=== PATIENT | female | born 1960 | race Hispanic/Latino ===

== ENCOUNTER 2016-05-08 22:34 | Emergency (ER) | payer MEDICARE ==
[2016-05-08 23:58] LABS: Alanine Aminotransferase 44 units/L (7-56); Albumin 3.1 g/dL (3.9-5); Albumin/Globulin Ratio 0.6 %; Alkaline Phosphatase 223 units/L (35-129); Anion Gap 18 mmol/L; BUN/Creatinine Ratio 11.42; Basophils % (Auto) 0.8 % (0.0-1.8); Bilirubin,Total 0.6 mg/dL (0.1-1.2); Blood Urea Nitrogen 8 mg/dL (7-17); Calcium 8.4 mg/dL (8.4-10.2); Carbon Dioxide 23 mmol/L (22-30); Chloride 97.1 mmol/L (98-107); Eosinophils % (Auto) 10.8 % (0.0-4.3); Glucose 131 mg/dL (65-100); Hematocrit 29.8 % (30.3-42.9); Hemoglobin 9.2 gm/dl (10.1-14.3); Lipase 67 units/L (13-60); Mean Corpuscular HGB Conc 31 % (30-34); Mean Corpuscular Hemoglobin 21 pg (28-32); Mean Corpuscular Volume 67 fl (79-97); Platelet Count 200 K/mm3 (140-440); Potassium 4.2 mmol/L (3.6-5.0); Red Blood Count 4.44 M/mm3 (3.65-5.03); Red Cell Distribution Width 21.1 % (13.2-15.2); Sodium 134 mmol/L (137-145); Total Protein 7.9 g/dL (6.3-8.2); White Blood Count 7.9 K/mm3 (4.5-11.0)
--- NOTE | 2016-05-09 09:46 | Emergency Department Report ---
Chief Complaint: Abdominal Pain Stated Complaint: ABD PAIN Time Seen by Provider: 05/09/16 09:32 - Exam Vital Signs: Vital Signs 05/08/16 23:11 Temperature 99 F Pulse Rate 110 H Respiratory 26 H Rate Blood Pressure 142/73 O2 Sat by Pulse 100 Oximetry MSE screening note: Focused history and physical exam performed. Due to findings the following was ordered: ED Medical Decision Making - Lab Data Result diagrams: 05/08/16 23:26 05/08/16 23:26 ED Disposition for MSE Condition: Stable Instructions: Abdominal Pain (ED) Referrals: DHIRAJ HUMPHREY MD [Primary Care Provider] - 3-5 Days
[2016-05-09] MEDS ORDERED: NACL 0.9% 1000 ML IV ONE (10:39)
--- NOTE | 2016-05-09 10:44 | Emergency Department Report ---
HPI - General Chief Complaint: Abdominal Pain Time Seen by Provider: 05/09/16 10:21 - HPI HPI: Chief complaint: Nausea vomiting diarrhea and generalized weakness HPI: Patient is 56-year-old female who states for the last month and half she's been having nausea vomiting and diarrhea intermittently. Patient had diarrhea yesterday but is small normal formed stool today. Patient is complaining of diffuse abdominal cramping intermittently. Patient saw her primary care 3 weeks ago and has an appointment with a GI specialist on May 22. Patient also had foot surgery 7 weeks ago. Patient denies being on antibiotics for any reason. Patient has history of hep C and she found out about 7 or 8 months ago and stopped drinking alcohol at that time. Patient has a chronic smoker's cough. Patient states she just feels bad and weak. No syncope Mode of arrival: private car Source: Patient and Began: Month and a half ago Duration: Intermittent Context: See above Quality: see above Severity: 8 out of 10 Improved with: Nothing Worsened with: Nothing Associated signs and symptoms: See above ED Past Medical Hx - Past Medical History Hx Liver Disease: Yes (Hep C) Hx Psychiatric Treatment: Yes - Surgical History Additional Surgical History: BL foot. ectopic - Social History Smoking Status: Current Every Day Smoker Substance Use Type: Alcohol - Medications Home Medications: Home Medications Medication Instructions Recorded Confirmed Last Taken Type Ondansetron [Zofran Odt] 4 mg PO Q4H PRN #10 tab.rapdis 05/09/16 Unknown Rx traMADol [Ultram 50 MG tab] 50 mg PO Q6HR PRN #14 tablet 05/09/16 Unknown Rx ED Review of Systems ROS: Stated complaint: ABD PAIN Other details as noted in HPI ROS Constitutional: fever ENT: No uri symptoms Cardiovascular: No chest pain Respiratory: No sob GI: See HPI : No dysuria frequency or urgency, Skin: No rash Neuro: No focal weakness or numbness Psych: No depression Humberto/lymph: No edema Physical Exam - Physical Exam Vital Signs: Vital Signs 05/08/16 05/09/16 05/09/16 23:11 10:12 10:13 Temperature 99 F Pulse Rate 110 H 107 H Respiratory 26 H 26 H Rate Blood Pressure 142/73 O2 Sat by Pulse 100 99 100 Oximetry 05/09/16 10:20 Temperature Pulse Rate Respiratory 18 Rate Blood Pressure O2 Sat by Pulse 100 Oximetry Physical Exam: GENERAL: The patient is well-developed well-nourished. HEENT: Normocephalic. Atraumatic. Extraocular motions are intact. Patient has moist mucous membranes. Extremely poor dental hygiene with missing teeth. NECK: Supple. No meningitic signs are noted. There is no adenopathy noted. CHEST/LUNGS: Clear to auscultation. There is no respiratory distress noted. Frequent dry smoker's cough. HEART/CARDIOVASCULAR: Regular. There is no tachycardia. There is no gallop rub or murmur. ABDOMEN: Abdomen is soft, nontender. Patient has normal bowel sounds. There is no abdominal distention. SKIN: There is no rash. There is no edema. There is no diaphoresis. NEURO: The patient is awake, alert, and oriented. The patient is cooperative. The patient has no focal neurologic deficits. The patient has normal speech. MUSCULOSKELETAL: There is no tenderness or deformity. There is no limitation range of motion. There is no evidence of acute injury. ED Course Vital Signs 05/08/16 05/09/16 05/09/16 23:11 10:12 10:13 Temperature 99 F Pulse Rate 110 H 107 H Respiratory 26 H 26 H Rate Blood Pressure 142/73 O2 Sat by Pulse 100 99 100 Oximetry 05/09/16 10:20 Temperature Pulse Rate Respiratory 18 Rate Blood Pressure O2 Sat by Pulse 100 Oximetry - Reevaluation(s) Reevaluation #1: 05/09/16 11:43 Patient given a liter normal saline, morphine, Zofran with improvement. 05/09/16 11:[address] Cantu who recommends referring the patient back to Dr. Dunaway who she has an appointment with. ED Medical Decision Making - Lab Data Result diagrams: 05/08/16 23:26 05/08/16 23:26 - Radiology Data Radiology results: report reviewed (CT scan shows cirrhosis and splenomegaly along with splenic vein and esophageal varices) Critical care attestation.: If time is entered above; I have spent that time in minutes in the direct care of this critically ill patient, excluding procedure time. ED Disposition Clinical Impression: Liver cirrhosis Qualifiers: Hepatic cirrhosis type: unspecified hepatic cirrhosis Disposition: DISCHARGED TO HOME OR SELFCARE Is pt being admited?: No Does the pt Need Aspirin: No Condition: Stable Instructions: Cirrhosis (ED), Acute Nausea and Vomiting (ED) Prescriptions: Ondansetron [Zofran Odt] 4 mg PO Q4H PRN #10 tab.rapdis PRN Reason: Nausea And Vomiting traMADol [Ultram 50 MG tab] 50 mg PO Q6HR PRN #14 tablet PRN Reason: Pain Referrals: DHIRAJ HUMPHREY MD [Primary Care Provider] - 3-5 Days TULIO DUNAWAY MD [Staff Physician] - 3-5 Days (Follow-up as planned) Time of Disposition: 12:04
[2016-05-09] MEDS ORDERED: NACL ONE (10:57)
[2016-05-09] MEDS ORDERED: ZOFRAN IV ONE (11:18)
[2016-05-09] MEDS ORDERED: MORPHINE IV ONE (11:18)
[2016-05-09 11:26] LABS: Bacteria,Urine 1+ /HPF (Negative); Bilirubin,Urine NEG (Negative); Blood,Urine SM (Negative); Ketones,Urine NEG (Negative); Leukocyte Esterase,Urine SM (Negative); Nitrite,Urine NEG (Negative); Protein,Urine <15 mg/dL mg/dL (Negative); Urobilinogen,Urine < 2.0 mg/dL (<2.0)
--- NOTE | 2016-05-09 11:36 | Cat Scan Report ---
CT ABDOMEN AND PELVIS WITH CONTRAST History: Abdominal pain, chronic nausea and vomiting. Technique: Helical CT following IV contrast. Sagittal and coronal reformatted images. Comparison: None at this facility. Findings: There is mild to moderate surface nodularity throughout the liver consistent with mild cirrhotic changes. No focal liver mass is appreciated. Splenomegaly measures 14.7 cm. There are mild splenic vein varicosities, gastrohepatic ligament varicosities and distal esophageal varicosities. No ascites is appreciated. 1 or 2 tiny calcified gallstones are identified within the gallbladder. No biliary dilatation is normal pancreas, kidneys, renal collecting systems, bladder and adrenal glands. The aorta is normal caliber. The bowel loops are within normal limits given no oral contrast was administered. Normal appendix. The uterus and adnexa are unremarkable. No evidence for acute inflammation or adenopathy. Heart size is normal. The visualized lung bases are clear. No suspicious bony lesion. Impression: Mild cirrhosis and splenomegaly. Varicosities as outlined above. No ascites. Tiny gallstones. No acute inflammatory process is appreciated.
[2016-05-09 13:20] VITALS: BP 97/42
== END 2016-05-09 13:31 | disposition home or self-care (01) ==
LOC: ED 22:34
DX: K74.60 Unspecified cirrhosis of liver (principal); F17.200 Nicotine dependence, unspecified, uncomplicated; Z98.890 Other specified postprocedural states
CPT/HCPCS: 36415; 74177; 80053; 81001; 81025; 83690; 85025; 96361; 96374; 96375; 99284; J2270; J2405; J7030; Q9967

== ENCOUNTER 2018-10-30 02:51 | Emergency (ER) | payer MEDICARE ==
[2018-10-30 03:50] LABS: Basophils % (Auto) 0.4 % (0.0-1.8); Eosinophils # (Auto) 0.3 K/mm3 (0.0-0.4); Hematocrit 27.1 % (30.3-42.9); Lymphocytes # (Auto) 1.5 K/mm3 (1.2-5.4); Lymphocytes % (Auto) 24.9 % (13.4-35.0); Mean Corpuscular HGB Conc 33 % (30-34); Mean Corpuscular Volume 89 fl (79-97); Monocytes # (Auto) 0.8 K/mm3 (0.0-0.8); Monocytes % (Auto) 14.3 % (0.0-7.3); Platelet Count 179 K/mm3 (140-440); Red Blood Count 3.06 M/mm3 (3.65-5.03); Red Cell Distribution Width 16.7 % (13.2-15.2)
[2018-10-30 04:19] LABS: Alanine Aminotransferase 29 units/L (7-56); Albumin 3.2 g/dL (3.9-5); BUN/Creatinine Ratio 13; Blood Urea Nitrogen 12 mg/dL (7-17); Calcium 8.2 mg/dL (8.4-10.2); Hemolysis Index 0
--- NOTE | 2018-10-30 07:06 | Emergency Department Report ---
HPI - General Chief Complaint: Abdominal Pain Time Seen by Provider: 10/30/18 06:51 - HPI HPI: Room 8 The patient is a 58-year-old female presenting with a chief complaint of abdominal pain. The patient states she has had constipation for the past 4 da ys. The patient states she developed diffuse abdominal pain 3 days ago. Patient states her abdomen feels full because she has not passed stool. Patient was to nausea but denies vomiting. Patient denies history of fever. Patient denies dysuria. Patient states she is taking Fleet enemas, milk of magnesia and MiraLAX without help Location: [See above] Duration: [See above] Quality: [See above] Severity: [See above] Modifying factors: [see above] Context: [see above] Mode of transportation: [not driving] ED Past Medical Hx - Past Medical History Previous Medical History?: Yes Hx Hypertension: (Stated High BP due to anxiety) Hx Liver Disease: Yes (Hep C) Hx Psychiatric Treatment: Yes Hx COPD: Yes Additional medical history: Peptic Ulcer Disease. - Surgical History Past Surgical History?: Yes Additional Surgical History: BL foot. ectopic - Family History Family history: no significant - Social History Smoking Status: Current Every Day Smoker (1/4 pack per day) Substance Use Type: None (denies illicit drug use) - Medications Home Medications: Home Medications Medication Instructions Recorded Confirmed Last Taken Type Ondansetron [Zofran Odt] 4 mg PO Q4H PRN #10 tab.rapdis 05/09/16 06/20/16 Unknown Rx traMADol [Ultram 50 MG tab] 50 mg PO Q6HR PRN #14 tablet 05/09/16 06/20/16 Unknown Rx ALPRAZolam [Alprazolam] 1 mg PO PRN 06/20/16 06/20/16 06/20/16 History 0815 Ondansetron [Zofran ODT TAB] 8 mg PO Q8HR #20 tab.rapdis 10/30/18 Unknown Rx Polyethylene Glycol/Elect 4,000 ml PO QDAY PRN #1 bottle 10/30/18 Unknown Rx [Golytely] ED Review of Systems ROS: Stated complaint: ABD/RIB PAIN Other details as noted in HPI Constitutional: no symptoms reported Eyes: denies: eye pain ENT: denies: throat pain Respiratory: no symptoms reported Cardiovascular: denies: chest pain Endocrine: no symptoms reported Gastrointestinal: abdominal pain, nausea, constipation. denies: vomiting Genitourinary: denies: dysuria Musculoskeletal: denies: back pain Neurological: denies: headache Physical Exam - Physical Exam Vital Signs: Vital Signs 10/30/18 10/30/18 10/30/18 03:10 05:06 05:50 Temperature 98.7 F 98.1 F Pulse Rate 95 H 86 Respiratory 18 17 16 Rate Blood Pressure 177/55 Blood Pressure 152/65 [Left] O2 Sat by Pulse 100 98 97 Oximetry Physical Exam: GENERAL: The patient is well-developed well-nourished female lying on stretcher not appearing to be in acute distress. [] HEENT: Normocephalic. Atraumatic. Extraocular motions are intact. Patient has moist mucous membranes. NECK: Supple. Trachea midline CHEST/LUNGS: Clear to auscultation. There is no respiratory distress noted. HEART/CARDIOVASCULAR: Regular. There is no tachycardia. There is no gallop rub or murmur. ABDOMEN: Abdomen is soft, with diffuse discomfort to palpation. There is no rebound or guarding. Patient has normal bowel sounds. There is no abdominal distention. SKIN: There is no rash. There is no edema. There is no diaphoresis. NEURO: The patient is awake, alert, and oriented. The patient is cooperative. The patient has normal speech MUSCULOSKELETAL: There is no evidence of acute injury. ED Course Vital Signs 10/30/18 10/30/18 10/30/18 03:10 05:06 05:50 Temperature 98.7 F 98.1 F Pulse Rate 95 H 86 Respiratory 18 17 16 Rate Blood Pressure 177/55 Blood Pressure 152/65 [Left] O2 Sat by Pulse 100 98 97 Oximetry ED Medical Decision Making - Lab Data Result diagrams: 10/30/18 03:35 10/30/18 03:35 Laboratory Tests 10/30/18 10/30/18 03:35 03:35 WBC 5.9 RBC 3.06 L Hgb 9.0 L Hct 27.1 L MCV 89 MCH 29 MCHC 33 RDW 16.7 H Plt Count 179 Lymph % (Auto) 24.9 [place] % (Auto) 14.3 H Eos % (Auto) 5.0 H Baso % (Auto) 0.4 Lymph # 1.5 [place] # 0.8 Eos # 0.3 Baso # 0.0 Seg Neutrophils % 55.4 Seg Neutrophils # 3.3 Sodium 135 L Potassium 4.0 Chloride 99.6 Carbon Dioxide 25 Anion Gap 14 BUN 12 Creatinine 0.9 Estimated GFR > 60 BUN/Creatinine Ratio 13 Glucose 96 Calcium 8.2 L Total Bilirubin 0.90 AST 35 ALT 29 Alkaline Phosphatase 119 Total Protein 6.8 Albumin 3.2 L Albumin/Globulin Ratio 0.9 - Radiology Data Radiology results: report reviewed (CT abdomen and pelvis), image reviewed (CT abdomen and pelvis) [facility] [address] [place] [address] Cat Scan Report Signed Patient: ALEXIS GENTILE MR#: [id number] : 1960 Acct:[id number] Age/Sex: 58 / F ADM Date: 10/30/18 Loc: ED Attending Dr: Ordering Physician: GIOVANNA CHAVEZ MD Date of Service: 10/30/18 Procedure(s): CT abdomen pelvis w con Accession Number(s): [id number] cc: GIOVANNA CHAVEZ MD CT ABDOMEN AND PELVIS WITH CONTRAST HISTORY: diffuse abdominal pain, constipation COMPARISON: 05/09/2016 TECHNIQUE: Axial CT images were obtained through the abdomen and pelvis after 100 cc of Omnipaque 300 intravenously. Sagittal and coronal reformatted images. All CT scans at this location are performed using CT dose reduction for ALARA by means of automated exposure control. FINDINGS: CT ABDOMEN: Lung Bases: Trace right pleural effusion is identified. The visualized lung bases are adequately aerated. Normal heart size. Small distal esophageal varices are identified. Liver: The liver is shrunken and cirrhotic. No obvious liver mass. The portal venous system is patent. Biliary: No significant abnormality. Spleen: Moderate splenomegaly measures 14.8 x 6.6 cm. Splenic vein varicosities and splenorenal renal shunt are noted. Gastrosplenic ligament varices are also noted. Pancreas: No significant abnormality. Adrenals: No significant abnormality. Kidneys: No significant abnormality. Lymphatics: No lymphadenopathy. Vasculature: Mild aortic calcifications. No aneurysm. Bowel/Peritoneum: No evidence for bowel obstruction or focal inflammation. The appendix is normal. CT PELVIS: : No significant abnormality. Osseous Structures: No significant abnormality. Additional Findings: Moderate ascites is noted throughout the abdomen. IMPRESSION: Cirrhosis, splenomegaly and ascites. Varicosities are identified in the distal esophagus, splenic vein and gastrohepatic ligament. No acute inflammatory process is identified. Trace right pleural effusion. Signer Name: Regino Motley Jr, MD Signed: 10/30/2018 9:05 AM Workstation Name: [id number] Transcribed By: TTR Dictated By: REGINO MOTLEY JR, MD Electronically Authenticated By: REGINO MOTLEY JR, MD Signed Date/Time: 10/30/18904 DD/ 9 TD/TT: - Differential Diagnosis constipation, bowel obstruction Critical care attestation.: If time is entered above; I have spent that time in minutes in the direct care of this critically ill patient, excluding procedure time. ED Disposition Clinical Impression: Acute abdominal pain, Constipation Disposition: TO HOME OR SELFCARE Is pt being admited?: No Does the pt Need Aspirin: No Condition: Stable Instructions: Abdominal Pain (ED), Constipation (ED) Additional Instructions: Return to the emergency department immediately should you develop worsening symptoms, fever, inability to tolerate food or liquid or any other concerns. Prescriptions: Polyethylene Glycol/Elect [Golytely] 4,000 ml PO QDAY PRN #1 bottle PRN Reason: Constipation Ondansetron [Zofran ODT TAB] 8 mg PO Q8HR #20 tab.rapdis Referrals: JORDI TSAI MD [Primary Care Provider] - 3-5 Days HILARY RODRIGUEZ MD [Staff Physician] - 3-5 Days (Dr. Rodriguez is a flexible babysitter. Please follow up with him for further evaluation) Time of Disposition: 09:21
--- NOTE | 2018-10-30 09:09 | Cat Scan Report ---
CT ABDOMEN AND PELVIS WITH CONTRAST HISTORY: diffuse abdominal pain, constipation COMPARISON: 05/09/2016 TECHNIQUE: Axial CT images were obtained through the abdomen and pelvis after 100 cc of Omnipaque 300 intravenously. Sagittal and coronal reformatted images. All CT scans at this location are performed using CT dose reduction for ALARA by means of automated exposure control. FINDINGS: CT ABDOMEN: Lung Bases: Trace right pleural effusion is identified. The visualized lung bases are adequately aera terry. Normal heart size. Small distal esophageal varices are identified. Liver: The liver is shrunken and cirrhotic. No obvious liver mass. The portal venous system is patent . Biliary: No significant abnormality. Spleen: Moderate splenomegaly measures 14.8 x 6.6 cm. Splenic vein varicosities and splenorenal renal shunt are noted. Gastrosplenic ligament varices are also noted. Pancreas: No significant abnormality. Adrenals: No significant abnormality. Kidneys: No significant abnormality. Lymphatics: No lymphadenopathy. Vasculature: Mild aortic calcifications. No aneurysm. Bowel/Peritoneum: No evidence for bowel obstruction or focal inflammation. The appendix is normal. CT PELVIS: : No significant abnormality. Osseous Structures: No significant abnormality. Additional Findings: Moderate ascites is noted throughout the abdomen. IMPRESSION: Cirrhosis, splenomegaly and ascites. Varicosities are identified in the distal esophagus, splenic vei n and gastrohepatic ligament. No acute inflammatory process is identified. Trace right pleural effusion. Signer Name: Regino Motley Jr, MD Signed: 10/30/2018 9:05 AM Workstation Name: [id number]
[2018-10-30] MEDS ORDERED: CEPHULAC PO ONE (09:16)
[2018-10-30] MEDS ORDERED: ZOFRAN IV ONE (09:17)
[2018-10-30] MEDS ORDERED: SUBLIMAZE IV ONE (09:29)
[2018-10-30] MEDS ORDERED: BENADRYL IV ONE (09:30)
[2018-10-30 10:05] VITALS: BP 131/52
== END 2018-10-30 10:05 | disposition home or self-care (01) ==
LOC: ED 02:51
DX: K59.00 Constipation, unspecified (principal); J44.9 Chronic obstructive pulmonary disease, unspecified; F17.200 Nicotine dependence, unspecified, uncomplicated
CPT/HCPCS: 36415; 74177; 80053; 85025; 96374; 96375; 99284; J1200; J2405; J3010; Q9967